=== PATIENT | male | born 1980 ===

== ENCOUNTER 2022-04-30 16:01 | Emergency (ER) | payer OTHER ==
[2022-04-30 16:38] LABS: BASOPHIL 0.6 % (0-2); HCT 44.2 % (42.0-52.0); HGB 15.2 g/dl (13.2-18.0); MCHC 34.4 g/dL (32.0-36.0); MCV 90.2 fL (78.0-100.0); MONOCYTE 8.3 % (0-12); MPV 10.7 fL (6.0-9.5); NEUTROPHIL 65.1 % (41-80); NRBC 0; PLT 222 K/uL (150-400); RDW 13.2 % (11.5-14.0)
[2022-04-30 16:58] LABS: BUN/CREAT RATIO (CALC) 16.8 RATIO; CREATININE 0.95 mg/dL (0.67-1.17); POTASSIUM 3.3 mmol/L (3.5-5.1)
[2022-04-30] MEDS ORDERED: NAPROXEN500 MG PO (19:33)
[2022-04-30] MEDS ORDERED: BACLOFEN 10MG T10 MG PO (19:33)
[2022-04-30 19:53] LABS: BILIRUBIN NEGATIVE (NEGATIVE); BLOOD NEGATIVE Ery/uL (NEGATIVE); CLARITY CLEAR (CLEAR); COLOR YELLOW (YELLOW); GLUCOSE (U) NORMAL (NORMAL); LEUKOCYTES NEGATIVE Leu/uL (NEGATIVE); NITRITE NEGATIVE (NEGATIVE); PROTEIN NEGATIVE (NEGATIVE); SPECIFIC GRAVITY <=1.005 (1.001-1.030); UROBILINOGEN 0.2 mg/dL (0.2-1.0); pH 6.5 (5.0-9.0)
== END 2022-04-30 20:05 | disposition home or self-care (01) ==
LOC: FER 16:01
PROVIDERS: Internal Medicine
DX: M54.50 Low back pain, unspecified (principal); M54.2 Cervicalgia; R51.9 Headache, unspecified; V49.50XA Passenger injured in collision with unspecified motor vehicles in traffic accident, initial encounter
CPT/HCPCS: 36415; 70450; 71260; 72125; 72128; 72131; 80048; 81003; 85025; J1100; J1885; J7030; Q9967